=== PATIENT | male | born 1995 | race Two or more races ===

== ENCOUNTER 2024-10-07 15:53 | Emergency (ER) | payer MEDICAID, OTHER ==
[~2024-10-07] VITALS: Ht 180.3 cm; Wt 119.0 kg
[2024-10-07 16:24] VITALS: BP 121/78; PULSE 73; RESP 18; TEMP 97.8; O2SAT 97
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
[2024-10-07] MEDS: KETOROLAC TROMETH 60MG/2ML VIAL IM ONE (16:40)
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
[2024-10-07] MEDS ORDERED: IBUP-1456 PO (17:22)
--- NOTE | 2024-10-07 17:33 | DVH ---
CLINICAL INDICATION: POST REDUCTION TECHNIQUE: XY L 1ST FINGER XRAY Comparison: None FINDINGS/IMPRESSION: : There is no evidence of acute fracture or dislocation. Soft tissues are unremarkable.
== END 2024-10-07 17:45 | disposition home or self-care (01) ==
LOC: ER 15:53
DX: S63.115A Dislocation of metacarpophalangeal joint of left thumb, initial encounter (principal); Z79.1 Long term (current) use of non-steroidal anti-inflammatories (NSAID); V43.52XA Car driver injured in collision with other type car in traffic accident, initial encounter; Y93.89 Activity, other specified; Y92.410 Unspecified street and highway as the place of occurrence of the external cause; Y99.8 Other external cause status
CPT/HCPCS: 26700; 73130; 73140; 96372; 99284; J1885

== ENCOUNTER 2025-01-26 21:12 | Emergency (ER) | payer MEDICAID ==
[~2025-01-26] VITALS: Ht 180.3 cm; Wt 117.4 kg
[~2025-01-26 21:12] MED LIST: IBUP-1456 PO
--- NOTE | 2025-01-26 21:54 | ED.PDOC ---
History of Present Illness HPI Comments 29-year-old male came to ER due to GI bleed. Patient has history of internal hemorrhoids and peptic ulcer disease. Patient has been complaining of throat pain for the past few days. Complaining of headaches and dental pain also, he was seen 2 days ago at urgent care, prescribed amoxicillin, nystatin and ibu profen 600 mg. However, he started passing bright red blood MO whenever he has a bowel movement. Denies any rectal pain or abdominal pain. Chief Complaint: GI Bleed Time Seen by MD: 21:54 Reviewed Notes: Nurses Notes Allergies: Coded Allergies: NSAIDs (Verified Allergy, Unknown, 01/26/25) Home Meds Active Scripts Ibuprofen (Ibuprofen) 800 Mg Tab, 1 TAB PO TID, #30 TAB Prov:RICARDO DELGADO 10/07/24 Information Source: Patient Severity: Moderate Timing: Days Duration: Intermittent Past Medical History Past Medical History (Other): Peptic ulcer disease, internal hemorrhoids Surgical History: Denies all surgeries Surgical History (Other): Colonoscopy Family History Family History: Reviewed,noncontributory to illness Social History Smoker: Non-Smoker Alcohol: Denies ETOH Use Drugs: Denies Drug Use Lives In: Home Constitutional: denies: chills, diaphoresis, fatigue, fever, malaise, sweats, weakness, others EENTM: reports: throat pain; denies: blurred vision, double vision, ear bleeding, ear discharge, ear drainage, ear pain, ear ringing, eye pain, eye redness, hearing loss, mouth pain, mouth swelling, nasal discharge, nose bleeding, nose congestion, nose pain, photophobia, tearing, throat swelling, voice changes, others Respiratory: denies: cough, hemoptysis, orthopnea, SOB at rest, shortness of breath, SOB with excertion, stridor, wheezing, others Cardiovascular: denies: chest pain, dizzy spells, diaphoresis, Dyspnea on exertion, edema, irregular heart beat, left arm pain, lightheadedness, palpitat ions, PND, syncope, others Gastrointestinal: reports: rectal bleeding; denies: abdomen distended, abdominal pain, blood streaked bowels, constipated, diarrhea, dysphagia, difficulty swallowing, hematemesis, melena, nausea, poor appetite, poor fluid intake, rectal pain, vomiting, others Genitourinary: denies: burning, dysuria, flank pain, frequency, hematuria, incontinence, penile discharge, penile sore, pain, testicle pain, testicle swelling, urgency, others Neurological: reports: headache; denies: dizziness, fainting, left sided numbness, left sided weakness, numbness, paresthesia, pre-existing deficit, right sided numbness, right sided weakness, seizure, speech problems, tingling, tremors, weakness, others Musculoskeletal: denies: back pain, gout, joint pain, joint swelling, muscle pain, muscle stiffness, neck pain, others Integumetry: denies: bruises, change in color, change in hair/nails, dryness, laceration, lesions, lumps, rash, wounds, others Allergic/Immunocompromised: denies: Difficulty Healing, Frequent Infections, Hives, Itching, others Hematologic/Lymphatic: denies: anemia, blood clots, easy bleeding, easy bruising, swollen glands, others Endocrine: denies: excessive hunger, excessive sweating, excessive thirst, excessive urination, flushing, intolerance to cold, intolerance to heat, u nexplained weight gain, unexplained weight loss, others Psychiatric: denies: anxiety, bipolar disorder, depression, hopeless, panic disorder, schizophrenia, sleepless, suicidal, others Physical Exam General Appearance: No Apparent Distress HEENT: Normal ENT Inspection, Other (No oropharyngeal lesions noted except for minimal uvular erythema. No gingival edema or erythema. No obvious dental lesions.) Neck: Full Range of Motion, Normal Inspection Respiratory: Lungs Clear, No Accessory Muscle Use, No Respiratory Distress, Normal Breath Sounds Cardiovascular: No Edema, No JVD, Regular Rate/Rhythm Breast Exam: Deferred Gastrointestinal: Non Tender, Soft Genitalia: Deferred Pelvic: Deferred Rectal: Deferred Extremities: Normal inspection, Normal range of motion, Non-tender, No pedal edema Neurologic: Alert (Oriented x4), Normal Affect, Normal Mood Cerebellar Function: NOT DONE Reflexes: NOT DONE Skin: Dry, Normal Color, Warm Lymphatic: NOT DONE Was a procedure done? Was a procedure done?: No Differential Dx Considerations may include: Anemia, electrolyte imbalance, peptic ulcer disease, GI bleed, hemorrhoids, pharyngitis including strep, COVID and influenza, dental infection, other oropharyngeal infection, among other X-Ray, Labs, Meds, VS Vital Signs Date Time Temp Pulse Resp B/P (MAP) Pulse Ox O2 Delivery O2 Flow Rate FiO2 01/26/25 21:54 98.3 70 18 130/86 (101) 96 98.3 Lab Test 01/26/25 22:02 01/26/25 21:30 Range/Units White Blood Count 7.3 4.4-10.8 10^3/uL Red Blood Count 4.67 4.5-5.90 10^6/uL Hemoglobin 14.7 13.5-17.5 g/dL Hematocrit 43.1 41.0-53.0 % Mean Corpuscular Volume 92.3 80.0-100.0 fL Mean Corpuscular Hemoglobin 31.4 28.0-32.0 pg Mean Corpuscular Hemoglobin Concent 34.1 32.0-36.0 g/dL Red Cell Distribution Width 12.9 11.8-14.3 % Platelet Count 203 140-450 10^3/uL Mean Platelet Volume 7.7 6.9-10.8 fL Neutrophils (%) (Auto) 60.4 37.0-80.0 % Lymphocytes (%) (Auto) 27.9 10.0-50.0 % Monocytes (%) (Auto) 7.9 0.0-12.0 % Eosinophils (%) (Auto) 3.2 0.0-7.0 % Basophils (%) (Auto) 0.6 0.0-2.0 % Neutrophils # (Auto) 4.4 1.6-8.6 10 ^3/uL Lymphocytes # (Auto) 2.1 0.4-5.4 10 ^3/uL Monocytes # (Auto) 0.6 0-1.3 10 ^3/uL Eosinophils # (Auto) 0.2 0-0.8 10 ^3/uL Basophils # (Auto) 0 0-0.2 10 ^3/uL Nucleated Red Blood Cells 0.1 % Prothrombin Time 10.2 9.3-11.8 sec Prothrombin Time INR 0.96 0.9-1.15 Activated Partial Thromboplast Time 29.3 24.5-34.5 SEC Sodium Level 142 136-145 mmol/L Potassium Level 4.0 3.5-5.1 mmol/L Chloride Level 104 98-107 mmol/L Carbon Dioxide Level 29 20-31 mmol/L Anion Gap 9 5-15 Blood Urea Nitrogen 13 9-23 mg/dL Creatinine 1.11 0.700-1.30 mg/dL Glomerular Filtration Rate Calc 93 >90 mL/min BUN/Creatinine Ratio 11.7 10.0-20.0 Serum Glucose 94 74-106 mg/dL Calcium Level 10.2 8.7-10.4 mg/dL Influenza Type A Antigen Negative Negative Influenza Type B Antigen Negative Negative SARS-CoV-2 Antigen (Rapid) Negative NEGATIVE Group A Streptococcus Rapid Negative X-Ray, Labs, Meds, VS Comment 29-year-old male with a history of ulcer disease and internal hemorrhoids presenting complaining of oral pain, headache and bright red blood per rectum Vitals unremarkable Exam unremarkable except for mild uvular erythema Rhythm strip independently interpreted by me: Sinus rhythm, rate 70, no ectopy. CBC, metabolic panel and coag panel unremarkable No acute treatment indicated in the ED. Patient stated he just wanted to check to make sure it was okay to continue taking the amoxicillin he was prescribed. Patient was advised to continue the amoxicillin until finished. He was advised to discontinue ibuprofen. I will prescribe Tylenol, viscous lidocaine, and medication for hemorrhoids. Time of 1ST Reevaluation: 21:49 Reevaluation 1ST: Unchanged Patient Education/Counseling: Diagnosis, Treatment Family Education/Counseling: No Family Present SEPSIS Sepsis Screen Vital Signs Date Time Temp Pulse Resp B/P (MAP) Pulse Ox O2 Delivery O2 Flow Rate FiO2 01/26/25 21:54 98.3 70 18 130/86 (101) 96 98.3 Laboratory Tests Test 01/26/25 22:02 White Blood Count 7.3 10^3/uL (4.4-10.8) Departure 1 Departure Time of Disposition: 22:56 Impression: Primary Impression: GI bleeding Additional Impression: Oral pain of unknown etiology Disposition: HOME / SELF CARE / HOMELESS Condition: Stable Additional Instructions: Your blood tests were unremarkable. Your screening tests for strep, influenza and COVID were negative. Discontinue taking ibuprofen. I have prescribed different pain medication, as well as hemorrhoid medication. Continue amoxicillin until finished. Follow-up with your primary doctor in 1-2 days. Follow-up with your GI specialist in 2-3 days. Return to ER for persistent or worsening symptoms. e-Prescriptions Hydrocortisone Acetate W/ Pram (Hydrocortisone Acetate/Pr 25-18 mg) 1 Sup Sup 1 SUP MO Q8HP PRN, #20 SUPP prn rectal bleeding/hemorrhoid Prov: TRACY ARGUETA MD 01/26/25 Lidocaine HCl (Mouth-Throat) (Lidocaine HCl Viscous) 2 % Sera 5 ML MT QID PRN, #120 ML swish/gargle and spit, prn oral/throat pain Prov: TRACY ARGUETA MD 01/26/25 Acetaminophen (Tylenol Extra Strength) 500 Mg Tab 1000 MG PO Q6HP PRN, #60 TAB prn pain Prov: TRACY ARGUETA MD 01/26/25 Discharged With: Self Critical Care Note Critical Care Time?: No Stability Stability form required: No Heart Score Heart Score: Heart Score Response (Comments) Value History N/A 0 EKG N/A 0 Age N/A 0 Risk Factors N/A 0 Troponin N/A 0 Total 0 I personally scribed for TRACY ARGUETA MD ([email or web address]) on 01/26/25 at 21:54. Electronically submitted by Joao Menezes ([facility]). TRACY ARGUETA MD Jan 26, 2025 21:54
[2025-01-26 22:23] LABS: Basophils # (auto) 0 10 ^3/uL (0-0.2); Basophils % (auto) 0.6 % (0.0-2.0); Eosinophils # (auto) 0.2 10 ^3/uL (0-0.8); Eosinophils % (auto) 3.2 % (0.0-7.0); Hematocrit 43.1 % (41.0-53.0); Hemoglobin 14.7 g/dL (13.5-17.5); Lymphocytes # (auto) 2.1 10 ^3/uL (0.4-5.4); Lymphocytes % (auto) 27.9 % (10.0-50.0); Mean Corpuscular Hemoglobin 31.4 pg (28.0-32.0); Mean Corpuscular Hgb Conc. 34.1 g/dL (32.0-36.0); Mean Corpuscular Volume 92.3 fL (80.0-100.0); Monocytes # (auto) 0.6 10 ^3/uL (0-1.3); Monocytes % (auto) 7.9 % (0.0-12.0); Neutrophils # (auto) 4.4 10 ^3/uL (1.6-8.6); Neutrophils % (auto) 60.4 % (37.0-80.0); Nucleated Red Blood Cells % 0.1 %; Platelet Count (auto) 203 10^3/uL (140-450); Red Blood Cells 4.67 10^6/uL (4.5-5.90); Red Cell Distribution Width 12.9 % (11.8-14.3); White Blood Cell 7.3 10^3/uL (4.4-10.8)
[2025-01-26 22:24] LABS: Rapid Strep A Screen-Throat Negative
[2025-01-26 22:32] LABS: Chloride 104 mmol/L (98-107); Sodium 142 mmol/L (136-145)
[2025-01-26 22:33] LABS: Anion Gap 9 (5-15); Carbon Dioxide 29 mmol/L (20-31)
[2025-01-26 22:34] LABS: Calcium 10.2 mg/dL (8.7-10.4)
[2025-01-26 22:34] LABS: COVID19 ANTIGEN SOFIA FIA NEGATIVE (NEGATIVE); Rapid Influenza A Negative (Negative); Rapid Influenza B Negative (Negative)
[2025-01-26 22:36] LABS: INR 0.96 (0.9-1.15); Partial Thromboplastin Time 29.3 SEC (24.5-34.5); Prothrombin Time 10.2 sec (9.3-11.8)
[2025-01-26 22:38] LABS: BUN/Creatinine Ratio 11.7 (10.0-20.0); Blood Urea Nitrogen 13 mg/dL (9-23); Glucose 94 mg/dL (74-106)
[2025-01-26] MEDS ORDERED: ACETAMINOPHEN 500 MG TAB or CAP PO ONE (22:52)
[2025-01-26 23:00] VITALS: BP 139/86; PULSE 59; RESP 18; TEMP 97.7; O2SAT 96
[2025-01-26] MEDS: ACETAMINOPHEN 500 MG TAB or CAP PO ONE (23:02)
[2025-01-26] MEDS ORDERED: ACET-1304 PO (23:10)
[2025-01-26] MEDS ORDERED: LIDO2SOL26 MT (23:10)
[2025-01-26] MEDS ORDERED: HYDR1SUP7 PR (23:10)
== END 2025-01-26 23:45 | disposition home or self-care (01) ==
LOC: ER 21:12
DX: K92.2 Gastrointestinal hemorrhage, unspecified (principal); K08.89 Other specified disorders of teeth and supporting structures; Z88.6 Allergy status to analgesic agent; Z87.19 Personal history of other diseases of the digestive system; Z79.1 Long term (current) use of non-steroidal anti-inflammatories (NSAID); Z98.890 Other specified postprocedural states; Z20.822 Contact with and (suspected) exposure to COVID-19
CPT/HCPCS: 36415; 80048; 85025; 85610; 85730; 87070; 87426; 87804; 87880

== ENCOUNTER 2025-04-17 08:48 | Emergency (ER) | payer MEDICAID ==
[~2025-04-17] VITALS: Ht 180.3 cm; Wt 99.2 kg
[~2025-04-17 08:48] MED LIST changes: +ACET-1304 PO; +HYDR1SUP7 PR; +LIDO2SOL26 MT
[2025-04-17 09:08] VITALS: BP 131/88; PULSE 73; RESP 18; TEMP 98.1; O2SAT 99
--- NOTE | 2025-04-17 09:22 | ED.PDOC ---
Musculoskeletal HPI Comments 29-year-old male presents to the ER with a chief complaint of LLE. Patient reports on having a left ankle injury due from twisting his ankle while running yesterday. Denies any other symptoms at this time. Still able to bear weight Denies previous surgeries to the ankle Denies redness or swelling around the ankle Denies fever chills night sweats nausea vomiting Chief Complaint: Lower Extremity Time Seen by MD: 09:20 Reviewed Notes: Nurses Notes, Medications, Allergies Allergies: Coded Allergies: NSAIDs (Verified Allergy, Unknown, 01/26/25) Home Meds Active Scripts Hydrocortisone Acetate W/ Pram (Hydrocortisone Acetate/Pr 25-18 mg) 1 Sup Sup, 1 SUP [place] Q8HP PRN, #20 SUPP prn rectal bleeding/hemorrhoid Prov:TRACY ARGUETA MD 01/26/25 Lidocaine HCl (Mouth-Throat) (Lidocaine HCl Viscous) 2 % Sera, 5 ML MT QID PRN, #120 ML swish/gargle and spit, prn oral/throat pain Prov:TRACY ARGUETA MD 01/26/25 Acetaminophen (Tylenol Extra Strength) 500 Mg Tab, 1000 MG PO Q6HP PRN, #60 TAB prn pain Prov:TRACY ARGUETA MD 01/26/25 Ibuprofen (Ibuprofen) 800 Mg Tab, 1 TAB PO TID, #30 TAB Prov:RICARDO DELGADO 10/07/24 Information Source: Patient Mode of Arrival: Ambulatory Location: Left Extremity Location: Ankle Timing: Hours Prehospital treatment: None Severity: Moderate Able to Move Extremity: Yes Bear Weight: Limited Pain: Moderate Hand Dominance: Right Mechanism: No Injury Circumstances: Sporting (Running) Onset of Symptoms: After Exercise Symptoms: Pain DVT Risk Factors: NONE Last Tetanus: Unknown Associated signs and symptoms: Ankle pain Past Medical History PAST MEDICAL HISTORY: Denies Surgical History: Denies all surgeries Family History Family History: Reviewed,noncontributory to illness, Unknown Social History Smoker: Non-Smoker Alcohol: Denies ETOH Use Drugs: Denies Drug Use Lives In: Home Constitutional: denies: chills, diaphoresis, fatigue, fever, malaise, sweats, weakness, others EENTM: denies: blurred vision, double vision, ear bleeding, ear discharge, ear drainage, ear pain, ear ringing, eye pain, eye redness, hearing loss, mouth pain, mouth swelling, nasal discharge, nose bleeding, nose congestion, nose pain, photophobia, tearing, throat pain, throat swelling, voice changes, others Respiratory: denies: cough, hemoptysis, orthopnea, SOB at rest, shortness of breath, SOB with excertion, stridor, wheezing, others Cardiovascular: denies: chest pain, dizzy spells, diaphoresis, Dyspnea on exertion, edema, irregular heart beat, left arm pain, lightheadedness, palpitations, PND, syncope, others Gastrointestinal: denies: abdomen distended, abdominal pain, blood streaked bowels, constipated, diarrhea, dysphagia, difficulty swallowing, hematemesis, melena, nausea, poor appetite, poor fluid intake, rectal bleeding, rectal pain, vomiting, others Genitourinary: denies: burning, dysuria, flank pain, frequency, hematuria, inco ntinence, penile discharge, penile sore, pain, testicle pain, testicle swelling, urgency, others Neurological: denies: dizziness, fainting, headache, left sided numbness, left sided weakness, numbness, paresthesia, pre-existing deficit, right sided numbness, right sided weakness, seizure, speech problems, tingling, tremors, weakness, others Musculoskeletal: denies: back pain, gout, joint pain, joint swelling, muscle pain, muscle stiffness, neck pain, others Integumetry: denies: bruises, change in color, change in hair/nails, dryness, laceration, lesions, lumps, rash, wounds, others Allergic/Immunocompromised: denies: Difficulty Healing, Frequent Infections, Hives, Itching, others Hematologic/Lymphatic: denies: anemia, blood clots, easy bleeding, easy bruising, swollen glands, others Endocrine: denies: excessive hunger, excessive sweating, excessive thirst, excessive urination, flushing, intolerance to cold, intolerance to heat, unexplained weight gain, unexplained weight loss, others Psychiatric: denies: anxiety, bipolar disorder, depression, hopeless, panic disorder, schizophrenia, sleepless, suicidal, others All Other Systems: Reviewed and Negative Physical Exam General Appearance: No Apparent Distress, Normal HEENT: Normal ENT Inspection, Pharynx Normal, TMs Normal Neck: Full Range of Motion, Non-Tender, Normal, Normal Inspection Respiratory: Chest Non-Tender, Lungs Clear, No Accessory Muscle Use, No Respiratory Distress, Normal Breath Sounds Cardiovascular: No Edema, No JVD, No Murmur, No Gallop, Normal Peripheral Pulses, Regular Rate/Rhythm Breast Exam: Deferred Gastrointestinal: No Organomegaly, Non Tender, No Pulsatile Mass, Normal Bowel Sounds, Soft Genitalia: Deferred Pelvic: Deferred Rectal: Deferred Extremities: No calf tenderness, Normal capillary refill, Normal inspection, Normal range of motion, Non-tender, No pedal edema Musculoskeletal : Location: Left Extremity Location: Ankle Apperance: Normal Neurologic: Alert, cane burner II-XII nml as Tested, No Motor Deficits, Normal Affect, Normal Mood, No Sensory Deficits Cerebellar Function: Normal Reflexes: Normal Skin: Dry, Normal Color, Warm Lymphatic: No Adenopathy Was a procedure done? Was a procedure done?: No Differential Diagnosis EXT Differential Diagnosis: Fracture, Sprain X-Ray, Labs, Meds, VS Vital Signs Date Time Temp Pulse Resp B/P (MAP) Pulse Ox O2 Delivery O2 Flow Rate FiO2 04/17/25 09:08 73 18 99 Room Air 04/17/25 09:08 98.1 73 18 131/88 (102) 99 98.1 04/17/25 08:50 98.1 73 18 131/88 99 98.1 X-Ray, Labs, Meds, VS Comment 29-year-old male presents to the ER with a chief complaint of LE. Patient arrives alert and oriented, ABC's intact, afebrile, vital signs stable, saturating well in room air History and examination consistent w/ sprain X-rays ordered, read by radiologist and reviewed by me. Imaging shows no acute findings There are no signs of arterial or nerve damage Take IBU or OTC Tylenol w/ food as needed for pain Recommended heat therapy Reviewed RICE management Avoid heavy lifting or strenuous activity Recommended range of motion exercises and limit heavy activity for 1 week If no improvement advised patient to return to the emergency department for follow-up. Discussed possibility of a occult fracture Time of 1ST Reevaluation: 09:50 Reevaluation 1ST: Unchanged Patient Education/Counseling: Diagnosis, Treatment, Prognosis Family Education/Counseling: No Family Present Departure 1 Departure Time of Disposition: 10:14 Impression: Primary Impression: Ankle sprain Qualified Codes: S93.402A - Sprain of unspecified ligament of left ankle, initial encounter Disposition: HOME / SELF CARE / HOMELESS Condition: Stable Discharged With: Self Critical Care Note Critical Care Time?: No Stability Stability form required: No Heart Score Heart Score: Heart Score Response (Comments) Value History N/A 0 EKG N/A 0 Age N/A 0 Risk Factors N/A 0 Troponin N/A 0 Total 0 I personally scribed for PK LEON NP ([email or web address]) on 04/17/25 at 09:22. Electronically submitted by Gregor Gee ([email or web address]). PK LEON NP Apr 17, 2025 09:22
--- NOTE | 2025-04-17 09:55 | DVH ---
CLINICAL INDICATION: r/o fracture, ankle pain TECHNIQUE: XY L ANKLE 3 VIEW Comparison: None FINDINGS/IMPRESSION: : There is no evidence of acute fracture or dislocation. Soft tissues are unremarkable.
== END 2025-04-17 10:21 | disposition home or self-care (01) ==
LOC: ER 08:48
DX: S93.402A Sprain of unspecified ligament of left ankle, initial encounter (principal); X50.1XXA Overexertion from prolonged static or awkward postures, initial encounter; Y93.02 Activity, running; Y92.89 Other specified places as the place of occurrence of the external cause; Y99.8 Other external cause status
CPT/HCPCS: 73610